=== PATIENT | female | born 1965 | race Caucasian/White ===

== ENCOUNTER 2017-02-13 01:15 | Emergency (ER) | payer OTHER ==
[~2017-02-13] VITALS: Ht 170.2 cm; Wt 147.4 kg
[~2017-02-13 01:15] MED LIST: AUGMENTIN500 MG PO; BACTRIM,SEPT1 TABLET PO; CHERATUSSIN AC473 ML PO; Colace PO; GABAPENTIN300 MG PO; HUMALOG MI100 UNIT/6 SC; HYCODAN SYRUP480 ML PO; LASIX40 MG PO; LEVAQUIN500 MG PO; LISINOPRIL40 MG PO; MACROBID100 MG PO; MILK OF MAGNESI10 ML PO; NAPROSYN500 MG PO; NICOTINE PATCH1 EAC2 TD; PERCOCET 10/1 TABLET PO; PERCOCET 5/31 TABLET PO; PYRIDIUM200 MG PO; SENNA8.6 MG PO; SYNTHROID75 MCG PO; ZITHROMAX Z-PA250 MG PO; ZOFRAN4 MG PO; [UNRECOGNIZED DRUG - REMARK] PO
[2017-02-13 01:20] VITALS: BP 127/72
[2017-02-13] MEDS ORDERED: NORCO 5/3251 TABLET PO (05:25)
[2017-02-13] MEDS ORDERED: CLEOCIN300 MG PO (05:25)
== END 2017-02-13 05:37 | disposition home or self-care (01) ==
LOC: EME 01:15
DX: M79.602 Pain in left arm (principal); L02.411 Cutaneous abscess of right axilla; I10 Essential (primary) hypertension; E11.9 Type 2 diabetes mellitus without complications; Z79.4 Long term (current) use of insulin; Z86.14 Personal history of Methicillin resistant Staphylococcus aureus infection; F17.200 Nicotine dependence, unspecified, uncomplicated
CPT/HCPCS: 93971; 99281; 99283